=== PATIENT | male | born 1930 | race African-American/Black ===

== ENCOUNTER 2018-10-14 20:55 | Inpatient (IN) | payer OTHER ==
[~2018-10-14] VITALS: Ht 170.2 cm; Wt 47.8 kg
--- NOTE | ~2018-10-14 | P ---
[facility] [place] [address] PROCEDURE REPORT Name: LISSA VAZQUEZ Room #: 361-P [facility] IN .R.#: [id number] Admission: 10/14/18 ������������������ Attend Phys: Konstantin Gabriel Discharge: ������������������ Date of : 31 Report #: [id number] THIS REPORT FOR: //name// CC: Antonio Gabriel MD DATE OF SERVICE: 10/15/2018 PROCEDURE PERFORMED: Upper endoscopy with biopsies. HISTORY OF PRESENT ILLNESS: The patient is an 88-year-old male with a recent history of coffee-ground emesis. No previous history of GI bleed. His hemoglobin dropped from 10.[address] showed possible thickening of the distal esophagus. Plan is for upper endoscopy. DESCRIPTION OF PROCEDURE: The risks and benefits of the procedure were explained to the patient's , those risks including but not limited to bleeding, perforation and the risk of sedation. He understood these risks and gave informed consent. Sedation was given using propofol per anesthesia. Next, using a standard Olympus upper endoscope, the scope was placed in the patient's mouth and advanced under direct vision through the esophagus, stomach and into the second portion of the duodenum. The upper and mid esophagus was normal. In the distal esophagus, grade D erosive esophagitis with several ulcerations were noted. No evidence of bleeding; however, the tissue was friable. In the stomach, there was a mild gastritis throughout the stomach. No evidence of ulcerations or erosions. No evidence of blood in the stomach. Biopsies were obtained to rule out H. pylori. The pylorus was normal and patent. The duodenal bulb, first and second portion were all normal. The major papilla was seen and normal in appearance. At this point, the scope was then withdrawn and the procedure terminated. The patient tolerated the procedure well. IMPRESSION: 1. Grade D erosive esophagitis, suspect recent source of coffee-ground emesis. No active bleeding at this time. 2. Gastritis. 3. Otherwise, normal upper endoscopy. RECOMMENDATIONS: 1. Await biopsy results. 2. Would recommend b.i.d. PPI therapy and liquid Carafate for the next 2 weeks and then continue once a day PPI therapy indefinitely. Continue to hold Motrin and aspirin at this time. [address] [address] PROCEDURE REPORT Name: LISSA VAZQUEZ Room #: 361-P [facility] IN .R.#: [id number] Admission: 10/14/18 ������������������ Attend Phys: Konstantin Gabriel Discharge: ������������������ Date of : 31 Report #: [id number] Thank you for allowing me to participate in his care. ��������������������������������������������� ���������������������������������������� By: ��������������������������������������������� 1220 191 Toney Gastelum MD /nt
--- NOTE | ~2018-10-14 | HC ---
[facility] [address] [place] [address] CONSULTATION Name: LISSA VAZQUEZ Room #: 361-P [facility] IN ..#: [id number] Admission: 10/14/18 ������������������ Attend Phys: Konstantin Gabriel Discharge: ������������������ Date of : 31 Report #: [id number] THIS REPORT FOR: //name// CC: Antonio Gabriel MD DATE OF SERVICE: 10/15/2018 HISTORY OF PRESENT ILLNESS: The patient is an 88-year-old male with recent history of coffee-ground emesis at a half-way facility. The patient's denies any previous history of GI bleed. She denies any history of dysphagia or heartburn type symptoms. He is not on any antacid. He does take aspirin on a daily basis. The patient has a history of dementia and gives limited history. He denies any abdominal pain at this time, although he did present with some abdominal pain. He denies any chest pain or shortness of breath currently. Hemoglobin on admission 10.3, hemoglobin today is 8.5. A CT scan of the abdomen and pelvis was performed yesterday on admission. This showed innumerable large cystic masses within the abdomen extending into the left pelvis, most consistent with polycystic kidney disease, cholelithiasis without evidence of acute cholecystitis was noted, subtle hyperdensity within the stomach, which is nonspecific and could represent debris, hemorrhage also needs to be considered, a thickening of the distal esophagus was also noted. The patient has been placed on Protonix since admission. There has been no further nausea and vomiting. He is currently n.p.o. PAST MEDICAL HISTORY: Dementia, anemia, hypertension, history of neuropathy, osteoporosis, COPD, diabetes, possible polycystic kidney disease, bilateral inguinal hernia, hyperlipidemia, hyperparathyroidism. ALLERGIES: No known drug allergies. MEDICATIONS: On admission, amlodipine, Remeron, folic acid, senna, Ventolin, aspirin 81 mg, vitamin D, Sensipar, Colace, iron sulfate, Flonase, polyethylene glycol, guaifenesin, Motrin 800 mg q. 6 hours p.r.n., Keppra, meclizine, melatonin, Lopressor, Tylenol p.r.n., allopurinol. REVIEW OF SYSTEMS: Limited due to his mental status, but as per the HPI. SOCIAL HISTORY: No alcohol or tobacco recently. FAMILY HISTORY: Unknown. PHYSICAL EXAMINATION: VITAL SIGNS: Temperature is 36.6, pulse 61, blood pressure 136/80, respiratory [place] 18[place] [address] CONSULTATION Name: LISSA VAZQUEZ Room #: 361-P [facility] IN [facility].#: [id number] Admission: 10/14/18 ������������������ Attend Phys: Konstantin Gabriel Discharge: ������������������ Date of : 31 Report #: [id number] GENERAL: He does answer some simple questions. He is in no acute distress. HEENT: Sclerae nonicteric. Oropharynx clear. NECK: Supple. CARDIOVASCULAR: Regular rate. CHEST: Clear to auscultation anteriorly bilaterally. ABDOMEN: Soft. He is mildly distended, mildly tender to palpation. EXTREMITIES: No cyanosis, clubbing or edema. LABORATORY DATA: WBC 5.4, hemoglobin 8.5, platelet count is 129. Sodium 146, potassium 4.8, chloride 113, bicarbonate 24, BUN 60, creatinine 2.5, glucose 87, calcium 10.4. Total bilirubin 0.2, AST 26, ALT 36, alkaline phosphatase 103, total protein 8.0, albumin 3.8. His INR is 1.1. ASSESSMENT AND PLAN: Upper gastrointestinal bleed, coffee-ground emesis, CT showing thickening of the distal esophagus, suspect this is due to esophagitis. He did have a drop in his hemoglobin. He has been on Motrin as well as aspirin recently, this has now been discontinued. Agree with PPI therapy. I had a long discussion with the patient and his today. I would recommend proceeding with an upper endoscopy for further evaluation, they agree. I will make further recommendations after endoscopy. Thank you for allowing me to participate in his care. ��������������������������������������������� ���������������������������������������� By: ��������������������������������������������� 1218 17 Toney Gastelum MD /john
[2018-10-14 20:57] VITALS: BP 157/71
[2018-10-14] MEDS ORDERED: ANORO ELLIPTA1 EACH INH (21:12)
[2018-10-14] MEDS ORDERED: ADULT LOW DOSE81 MG PO (21:12)
[2018-10-14] MEDS ORDERED: COLACE 100 MG100 MG PO (21:13)
[2018-10-14] MEDS ORDERED: SENSIPAR 30 MG30 M1 PO (21:13)
[2018-10-14] MEDS ORDERED: VITAMIN D1000 UNI1 PO (21:13)
[2018-10-14] MEDS ORDERED: FEOSOL325 M1 PO (21:14)
[2018-10-14] MEDS ORDERED: GLYCOLAX119 GM PO (21:15)
[2018-10-14] MEDS ORDERED: FLONASE 0.05%50 MCG NASAL (21:15)
[2018-10-14] MEDS ORDERED: GUAIFENESIN400 MG PO (21:16)
[2018-10-14 21:17] LABS: ABSOLUTE NEUTROPHILS 4.9 thou/uL (1.4-8.2); BASOPHILS 1.3 % (0.0-2.0); EOSINOPHILS 2.6 % (0.0-3.0); HEMOGLOBIN 10.3 gm/dL (14.0-18.0); LYMPHOCYTES 26.2 % (24.0-44.0); MCH 29.7 pg (26.0-34.0); MCHC 33.1 g/dL (28.0-37.0); MCV 89.7 fL (80.0-100.0); MONOCYTES 4.8 % (1.0-8.0); PLATELET COUNT 172 thou/uL (150-400); POLYS 65.1 % (36.0-66.0); RBC 3.45 mil/uL (4.50-6.00); RDW 16.6 % (10.5-14.5); WBC 7.6 thou/uL (4.0-11.0)
[2018-10-14] MEDS ORDERED: KEPPRA250 MG PO (21:17)
[2018-10-14] MEDS ORDERED: IBUPROFEN 800800 M1 PO (21:17)
[2018-10-14] MEDS ORDERED: HYDRALAZINE 10M10 MG PO (21:17)
[2018-10-14] MEDS ORDERED: MECLIZINE HCL25 MG PO (21:18)
[2018-10-14] MEDS ORDERED: MELATONIN3 MG PO (21:18)
[2018-10-14] MEDS ORDERED: LOPRESSOR25 PO (21:18)
[2018-10-14] MEDS ORDERED: MAPAP500 MG PO (21:20)
[2018-10-14] MEDS ORDERED: AMLODIPINE BESY10 MG PO (21:21)
[2018-10-14] MEDS ORDERED: ALLOPURINOL 10100 M1 PO (21:21)
[2018-10-14] MEDS ORDERED: ACETAMINOPHEN650 M5 PO (21:21)
[2018-10-14 21:28] LABS: CALCIUM 11.5 mg/dL (8.5-10.1); CREATININE 2.8 mg/dL (0.7-1.3); POTASSIUM 4.9 mmol/L (3.5-5.1)
[2018-10-14 21:30] LABS: INR 1.1
[2018-10-14 21:34] LABS: ALBUMIN 3.8 g/dL (3.4-5.0); TOTAL BILIRUBIN 0.2 mg/dL (<0.1-1.0)
[2018-10-14 22:27] VITALS: BP 157/71
[2018-10-14] MEDS ORDERED: REMERON15 M2 PO (22:59)
[2018-10-14] MEDS ORDERED: SENNA8.6 MG PO (23:00)
[2018-10-14] MEDS ORDERED: RENAL CAPS SOFTG1 MG PO (23:00)
[2018-10-14] MEDS ORDERED: VENTOLIN HFA 1818 GM INH (23:01)
[2018-10-14 23:37] VITALS: BP 117/71
--- NOTE | 2018-10-15 00:51 | NUR ---
PATIENT IS A NEW ADMIT TO THE UNIT THIS SHIFT. HE ARRIVED VIA CART FROM THE ER AND WAS TRANSFERRED TO THE BED WITHOUT INCIDENT. PATIENT IS CONFUSED AND UNABLE TO PARTICIPATE IN ADMISSION OR RELAY NEEDS EFFECTIVELY. NURSE TO COMPLETE ADMISSION AND INITIATE CARE PLAN.
[2018-10-15 04:00] VITALS: BP 148/87
[2018-10-15 05:44] LABS: HEMATOCRIT 25.4 % (42.0-52.0); HEMOGLOBIN 8.5 gm/dL (14.0-18.0); MCH 30.2 pg (26.0-34.0); MCHC 33.2 g/dL (28.0-37.0); MCV 90.8 fL (80.0-100.0); RBC 2.8 mil/uL (4.50-6.00); RDW 16.4 % (10.5-14.5); WBC 5.4 thou/uL (4.0-11.0)
[2018-10-15 06:12] LABS: CALCIUM 10.4 mg/dL (8.5-10.1); CREATININE 2.5 mg/dL (0.7-1.3); POTASSIUM 4.8 mmol/L (3.5-5.1)
[2018-10-15 07:40] VITALS: BP 136/80
[2018-10-15 13:03] VITALS: BP 141/73
--- NOTE | 2018-10-15 13:52 | EKG ---
[place] [address] [facility] [employer] [place] [address] ELECTROCARDIOGRAM REPORT Name: LISSA VAZQUEZ Room #: 361- ADM IN M.R.#: [id number] ������������������ Admission: 10/14/18 ������������������ Attend Phys: Konstantin Gabriel Discharge: ������������������ Date of : 31 Report #: [id number] ����������������������������������������������������������������� [id number] THIS REPORT FOR: //name// [facility] Test Date: 2018-10-14 Test Time: 21:00:19 Pat Name: LISSA VAZQUEZ Department: Room: 361 Gender: M Junior Electrical Engineer: GW : 1930 Requested By: Jann Sifuentes Order Number: [id number] MD: Rene French Measurements Intervals Diller Rate: 60 P: 50 AR: 250 QRS: 16 QRSD: 127 T: QT: 540 QTc: 540 Interpretive Statements Probable sinus rhythm Right bundle branch block Compared to ECG 06/17/2007 10:06:07 Right bundle branch block is now present Electronically Signed On 10-15-2018 13:51:55 CDT by Rene French [email or web address] ��������������������������������������������� <ELECTRONICALLY SIGNED> ���������������������������������������� By: Rene French MD, [facility] ��������������������������������������������� 10/15/18 1351 99 99 Rene French MD, FACC /EPI
[2018-10-15 15:37] VITALS: BP 156/56
[2018-10-15 19:37] VITALS: BP 135/69
--- NOTE | 2018-10-15 19:53 | NUR ---
Assumed care at 0700 this AM. Patient oriented to self only. Patient was NPO at shift change. Blood sugar was 62 this AM. 1/2 amp of dextrose administered and sugar increased to 113. No insulin was needed today. Patient went down for EGD-report given to GI lab. GI Lab called after EGD and said patient tolerated well. Patient slept most of afternoon. Patient stated he isn't having any pain. Patient slept through lunch, but ate most of his dinner tray this evening. Fluids infusing per orders. Fall precautions in place. Patient making progress toward plan of care goals.
[2018-10-16 04:32] VITALS: BP 157/85
--- NOTE | 2018-10-16 05:25 | NUR ---
PATIENT IS PROGRESSING IN HIS CARE PLAN. VITAL SIGNS STABLE WITH PATIENT HAVING NO COMPLAINTS OF PAIN OR NAUSEA. ALERT TO SELF, PATIENT IS PLEASANTLY CONFUSED AND EASILY RE DIRECTABLE. BREATHING STABLE ON LOW LEVEL OXYGEN EVIDENCED BY SPOT OXYGENATION CHECKS. CONTINUE PLAN OF CARE.
[2018-10-16 07:33] VITALS: BP 149/71
[2018-10-16 07:52] LABS: HEMATOCRIT 24.1 % (42.0-52.0); HEMOGLOBIN 7.9 gm/dL (14.0-18.0); MCH 29.9 pg (26.0-34.0); MCHC 32.9 g/dL (28.0-37.0); MCV 90.9 fL (80.0-100.0); RBC 2.65 mil/uL (4.50-6.00); RDW 16.2 % (10.5-14.5); WBC 4.1 thou/uL (4.0-11.0)
[2018-10-16 07:59] LABS: CALCIUM 10.8 mg/dL (8.5-10.1); CREATININE 2.3 mg/dL (0.7-1.3); POTASSIUM 4.5 mmol/L (3.5-5.1)
[2018-10-16] MEDS ORDERED: ROXICODONE5 M2 PO (11:39)
--- NOTE | 2018-10-16 15:47 | NUR ---
INITIAL ASSESSMENT: Received consult due to pt being admitted from a nursing facility. МАРИЯ reviewed chart and spoke with attending physician. Pt was admitted from [facility] due to coffee ground emesis. Pt with hx of dementia. Pt ambulates with a walker. SW left voice message for pt's , Estella, to confirm discharge plan to return to [place]. transit planner to fax clinical info for review. МАРИЯ notified [facility] post-acute liaison of pt's admission. Discharge is anticipated in 1-2 days. МАРИЯ is following to assist as needed with discharge planning.
--- NOTE | 2018-10-16 15:53 | NUR ---
ASSUMED CARE OF PATIENT DUE TO PRIMARY RN LEFT DUE TO SICKNESS.
--- NOTE | 2018-10-16 16:12 | NUR ---
DISCHARGE PLANNING. PATIENT ADMITTED FROM [facility]. PATIENT DISCHARGE PLAN IS TO RETURN TO [facility]. PATIENT CLINICAL INFORMATION FAXED TO [facility] LIAISON. CALL PLACED TO TENA TO NOTIFY. FOLLOWING TO ASSIST.
[2018-10-16 16:43] VITALS: BP 149/88
[2018-10-16 19:38] VITALS: BP 172/83
[2018-10-16 22:13] VITALS: BP 158/73
--- NOTE | 2018-10-16 22:14 | NUR ---
BLOOD PRESSURE AT 1938 GREATER THAN 160 SYSTOLIC. RECHECKED THIS BLOOD PRESSURE TO GIVE MEDICATION THAT WAS NEEDED AND FOUND IT TO BE 158/73 NO MEDICATION NEEDED AT THIS TIME. PT IS RESTING QUIETLY, TOOK HIS MELATONIN AT THIS TIME. HAS NEEDED MANY FREQUENT CHECKS, AND HAS TRIED TO GET OUT OF BED OFTEN TONIGHT. BED ALARM IS SET AND HE IS AT CLOSEST PROXIMITY TO THE NURSES STATION.
--- NOTE | 2018-10-17 04:32 | NUR ---
pt is close to the nurses station for safety. he has been awake the entire night. he continues on maintanence iv fluids. he sets off bed alarm frequently. denies pain, but is very awake tonight. careplan reviewed. progressing slowly toward discharge goals. no evidence of bleeding, no emesis or bowel movement tonight.
[2018-10-17 04:34] VITALS: BP 177/86
[2018-10-17 04:48] LABS: HEMATOCRIT 29.1 % (42.0-52.0); HEMOGLOBIN 9.5 gm/dL (14.0-18.0); MCH 29.7 pg (26.0-34.0); MCHC 32.8 g/dL (28.0-37.0); MCV 90.6 fL (80.0-100.0); RBC 3.21 mil/uL (4.50-6.00); RDW 16.1 % (10.5-14.5); WBC 5.4 thou/uL (4.0-11.0)
[2018-10-17 05:13] LABS: CALCIUM 11.1 mg/dL (8.5-10.1); POTASSIUM 4.2 mmol/L (3.5-5.1)
[2018-10-17 07:30] VITALS: BP 190/86
[2018-10-17] MEDS ORDERED: CARAFATE 11 GM/10 M1 PO (10:43)
[2018-10-17] MEDS ORDERED: PROTONIX40 M1 PO (10:44)
--- NOTE | 2018-10-17 11:25 | NUR ---
Assumed care of pt at 0700. No complaints of pain or N/V. Abdomen remains distended and firm. Pt orientated to self. Ongoing impulsivity. Trying to get out of bed/out of chair. Frequent monitoring and fall precautions in place. Anticipated DC this afternoon pending arrangement. Pt progressing towrad POC goals. Will continue to monitor and assess.
[2018-10-17 13:50] VITALS: BP 135/57
--- NOTE | 2018-10-17 14:08 | NUR ---
DISCHARGE NOTE: SW reviewed chart and spoke with nursing and attending physician. Pt is medically stable for discharge back to [facility] today. assortment planner coordinated and notified family. Pt's to provide transportation. No additional SW needs identified at this time, but is available to assist should needs arise.
--- NOTE | 2018-10-17 18:07 | PATH ---
[facility] [address] [place] [address] PATHOLOGY RPT PROCEDURE Name: TAYLORLISSA Room #: 361-P DIS IN M.R.#: [id number] ������������������ Admission: 10/14/18 ������������������ Date of : 31 Discharge: 10/17/18 Report #: [id number] Path Case #: [id number] [facility] Accession Number: [id number] . 01 Material submitted: . stomach - BX OF GASTRIC . 01 Clinical history: . Pre-OP DX: Coffee-ground emesis Post-OP DX: Gastritis . 02 Diagnosis: Gastric mucosa, gastric rule out H. pylori, endoscopic biopsy: - Moderate reactive gastropathy associated with intestinal metaplasia. - Negative for atrophy or dysplasia. - Negative for Helicobacter pylori (properly-controlled immunohistochemical stain performed). . (IUV:mml; 10/17/2018) QLM/10/17/2018 . 02 Electronically signed: . Leti Olivares MD, Pathologist NPI- [id number] . 01 Gross description: . Received in formalin labeled "Lissa Arroyo BX of gastric, rule out H. pylori," are 2 segments of hendricks soft tissue measuring 2.0 x 0.4 x 0.3 cm in aggregate dimensions and ranging from 0.6 to 1.3 cm in maximum dimension. The specimen is submitted entirely in cassette A1. (TSD; 10/16/2018) TOB/TOB . 02 Pathologist provided ICD-10: K31.9 . 02 CPT . 153344, Y74520 Specimen Comment: A courtesy copy of this report has been sent to Specimen Comment: [phone], , . Specimen Comment: Report sent to ,DR BUTLER / DR GOODWIN Performed at: [address], [place], [place] [id number] MD Zack Lyon MD Phone: [phone] Performed at: [address] [place] [address] PATHOLOGY RPT PROCEDURE Name: LISSA ARROYO Room #: 361-P DIS IN M.R.#: [id number] ������������������ Admission: 10/14/18 ������������������ Date of : 31 Discharge: 10/17/18 Report #: [id number] Path Case #: [id number] [address] [facility], [place], [place] [id number] MD Leti Olivares MD Phone: [phone]
== END 2018-10-17 14:46 | DRG 380 ==
LOC: ER 20:55 → 3W 21:52 → EROBS 21:52 → 3W 23:44 → ENTRNSPT 10-17 14:35 → 3W 10-17 14:46
PROVIDERS: Emergency Medicine; Hospitalist; Nurse Practitioner Family; ADMIT Hospitalist
PROC: 0DB78ZX Excision of Stomach, Pylorus, Via Natural or Artificial Opening Endoscopic, Diagnostic (ICD-10-PCS; principal; 2018-10-15)
DX: K22.11 Ulcer of esophagus with bleeding (principal); N17.0 Acute kidney failure with tubular necrosis; Q61.3 Polycystic kidney, unspecified; E46 Unspecified protein-calorie malnutrition; Z68.1 Body mass index [BMI] 19.9 or less, adult; N18.3 Chronic kidney disease, stage 3 (moderate); F03.90 Unspecified dementia, unspecified severity, without behavioral disturbance, psychotic disturbance, mood disturbance, and anxiety; M81.0 Age-related osteoporosis without current pathological fracture; E78.5 Hyperlipidemia, unspecified; J44.9 Chronic obstructive pulmonary disease, unspecified; E11.40 Type 2 diabetes mellitus with diabetic neuropathy, unspecified; E21.3 Hyperparathyroidism, unspecified; K29.71 Gastritis, unspecified, with bleeding; E11.22 Type 2 diabetes mellitus with diabetic chronic kidney disease; I12.9 Hypertensive chronic kidney disease with stage 1 through stage 4 chronic kidney disease, or unspecified chronic kidney disease; Z66 Do not resuscitate; K21.9 Gastro-esophageal reflux disease without esophagitis; R00.1 Bradycardia, unspecified; G40.909 Epilepsy, unspecified, not intractable, without status epilepticus; G89.29 Other chronic pain; Z79.1 Long term (current) use of non-steroidal anti-inflammatories (NSAID); Z79.899 Other long term (current) drug therapy; Z95.0 Presence of cardiac pacemaker; Z91.81 History of falling
CPT/HCPCS: 10879; 62110; 62900; 70005